=== PATIENT | female | born 1965 | race African-American/Black ===

== ENCOUNTER 2021-01-24 12:41 | Emergency (ER) | payer BC ==
[2021-01-24 14:24] LABS: Absolute Lymphocytes (CBC) 1.5 K/uL (0.7-4.9); Basophils % 0.4 % (0-1.3); Hematocrit 35.3 % (36.0-45.0); Lymphocytes % 33.1 % (15.3-44.8); MPV 9.6 fL (7.6-11.3); RBC Red Blood Cell Count 3.81 M/uL (3.86-4.86)
--- NOTE | 2021-01-24 14:40 | RAD REPORT ---
EXAM DESCRIPTION: RAD - Chest Single View - 01/24/2021 2:21 pm CLINICAL HISTORY: CHEST PAIN COMPARISON: None TECHNIQUE: AP portable chest image was obtained 01/24/2021 2:21 pm . FINDINGS: Lungs are clear. Heart and vasculature are normal. No measurable pleural effusion and no p neumothorax. No acute bony abnormality seen. No acute aortic findings suspected. IMPRESSION: No acute cardiopulmonary process.
[2021-01-24 14:42] LABS: Potassium 3.8 mmol/L (3.5-5.1); Sodium Level 143 mmol/L (136-145)
[2021-01-24 14:55] LABS: ALT/SGPT 22 U/L (12-78); AST/SGOT 14 U/L (15-37); Albumin 3.9 g/dL (3.4-5.0); Alkaline Phosphatase 68 U/L (45-117); BUN Blood Urea Nitrogen 9 mg/dL (7-18); Bicarbonate 31 mmol/L (21-32); Bilirubin Direct 0.2 mg/dL (0-0.2); Bilirubin Total 0.9 mg/dL (0.2-1.0); Glucose Level 81 mg/dL (74-106); Magnesium 1.9 mg/dL (1.8-2.4); NT PRO-BNP 61 pg/mL (<125); Protein, Total 7.7 g/dL (6.4-8.2); Troponin (Emerg Dept Use Only) < 0.02 ng/mL (0.0-0.045)
--- NOTE | 2021-01-24 15:27 | EDPHYS ---
Physician Documentation [facility] Name: Chely Franks Age: 55 yrs Sex: Female : 1965 Arrival Date: 01/24/2021 Time: 12:44 Bed 14 Private MD: Jody Santos ED Physician Kendall Coombs HPI: 01/24 14:45 This 55 yrs old Black Female presents to ER via Ambulatory with complaints of High ma2 Blood Pressure, Numbness Of Hand, Numbness Of Arm, Leg Swelling, Vision Problem. 14:45 The patient has elevated blood pressure and discovered this at home. Onset: The ma2 symptoms/episode began/occurred gradually, 1 week(s) ago. 14:46 Associated signs and symptoms: Pertinent negatives: dyspnea, lightheadedness, nausea, ma2 visual changes. Severity of symptoms: At its worst the blood pressure was mild, in the emergency department the blood pressure is unchanged. The patient has not experienced similar symptoms in the past. Patient has been having joint stiffness, aches mild swelling of both ankles and both wrists, and generalized weakness for a few weeks, she saw her PCP they did a blood work, referred to staff weapons officer, and she has an appointment scheduled with rheumatology for possible rheumatoid arthritis. However she checked her blood pressure yesterday at work and it was of 170/95, and she was advised to come to the ER for evaluation. Never had hypertension, does not have any symptom at this time. 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 However throughout the day when the swelling goes down the numbness also goes away. Patient does not have any symptom at this time no chest pain or angina equivalent, no left arm numbness or shoulder numbness.. Historical: - Allergies: 13:08 No Known Allergies; ld1 - Home Meds: 13:08 None [Active]; ld1 - PMHx: 13:08 None; ld1 - PSHx: 13:08 section; Cholecystectomy; hysterectomy; ld1 - Immunization history:: Adult Immunizations up to date, Client reports receiving the 2nd dose of the Covid vaccine. - Social history:: Smoking status: Patient denies any tobacco usage or history of. Patient/guardian denies using alcohol, The patient lives with family. - Family history:: not pertinent. ROS: 14:46 Constitutional: Negative for fever, chills, and weight loss. ma2 14:46 All other systems are negative. Exam: 14:46 Constitutional: This is a well developed, well nourished patient who is awake, alert, ma2 and in no acute distress. Head/Face: Normocephalic, atraumatic. Eyes: Pupils equal round and reactive to light, extra-ocular motions intact. Lids and lashes normal. Conjunctiva and sclera are non-icteric and not injected. Cornea within normal limits. Periorbital areas with no swelling, redness, or edema. ENT: Nares patent. No nasal discharge, no septal abnormalities noted. Tympanic membranes are normal and external auditory canals are clear. Oropharynx with no redness, swelling, or masses, exudates, or evidence of obstruction, uvula midline. Mucous membranes moist. Neck: Trachea midline, no thyromegaly or masses palpated, and no cervical lymphadenopathy. Supple, full range of motion without nuchal rigidity, or vertebral point tenderness. No Meningismus. Chest/axilla: Normal chest wall appearance and motion. Nontender with no deformity. No lesions are appreciated. Cardiovascular: Regular rate and rhythm with a normal S1 and S2. No gallops, murmurs, or rubs. Normal PMI, no JVD. No pulse deficits. Respiratory: Lungs have equal breath sounds bilaterally, clear to auscultation and percussion. No rales, rhonchi or wheezes noted. No increased work of breathing, no retractions or nasal flaring. Abdomen/GI: Soft, non-tender, with normal bowel sounds. No distension or tympany. No guarding or rebound. No evidence of tenderness throughout. Skin: Warm, dry with normal turgor. Normal color with no rashes, no lesions, and no evidence of cellulitis. MS/ Extremity: Pulses equal, no cyanosis. Neurovascular intact. Full, normal range of motion. Neuro: Awake and alert, GCS 15, oriented to person, place, time, and situation. Cranial nerves II-XII grossly intact. Motor strength 5/5 in all extremities. Sensory grossly intact. Cerebellar exam normal. Normal gait. Vital Signs: 13:03 BP 144 / 89; Pulse 64; Resp 18; Temp 97.9(TE); Pulse Ox 100% on R/A; Weight 99.79 kg; ld1 Height 5 ft. 11 in. (180.34 cm); Pain 0/10; 14:49 BP 135 / 84; Pulse 55; Resp 17; Pulse Ox 98% on R/A; jt3 15:34 BP 131 / 82; Pulse 73; Resp 17; Pulse Ox 100% on R/A; jt3 13:03 Body Mass Index 30.68 (99.79 kg, 180.34 cm) ld1 MDM: 13:18 Patient medically screened. ma2 14:46 Differential diagnosis: Essential hypertension, rheumatoid arthritis, SLE, versus ma2 secondary hypertension. 15:26 Data reviewed: vital signs, nurses notes. Counseling: I had a detailed discussion with ma2 the patient and/or guardian regarding: the historical points, exam findings, and any diagnostic results supporting the discharge/admit diagnosis, the presence of at least one elevated blood pressure reading (>120/80) during this emergency department visit, the need for outpatient follow up. Response to treatment: the patient's symptoms have markedly improved after treatment. ED course: T wave inversion in chest leads, V2, I informed the patient to have another EKG tomorrow and follow-up with PCP.. 01/24 13:19 Order name: Basic Metabolic Panel [facility] 01/24 13:19 Order name: CBC with Diff; Complete Time: 14:37 [facility] 01/24 13:19 Order name: LFT's; Complete Time: 15:21 [facility] 01/24 13:19 Order name: Magnesium; Complete Time: 15:21 [facility] 01/24 13:19 Order name: NT PRO-BNP; Complete Time: 15:21 [facility] 01/24 13:19 Order name: PT-INR; Complete Time: 14:37 [facility] 01/24 13:19 Order name: Troponin (emerg Dept Use Only); Complete Time: 15:21 [facility] 01/24 13:19 Order name: XRAY Chest (1 view); Complete Time: 15:21 [facility] 01/24 13:19 Order name: EKG; Complete Time: 13:20 [facility] 01/24 13:19 Order name: Cardiac monitoring; Complete Time: 14:02 [facility] 01/24 13:19 Order name: EKG - Nurse/Tech; Complete Time: 14:02 [facility] 01/24 13:19 Order name: IV Saline Lock; Complete Time: 14:02 ma2 01/24 13:19 Order name: Labs collected and sent; Complete Time: 14:02 k[facility] 01/24 13:19 Order name: Basic Metabolic Panel; Complete Time: 15:21 [facility] 01/24 13:19 Order name: O2 Per Protocol; Complete Time: 14:02 ma2 01/24 13:19 Order name: O2 Sat Monitoring; Complete Time: 14:02 ma2 Administered Medications: No medications were administered Disposition Summary: 01/24/21 15:27 Discharge Ordered Location: Home ma2 Condition: Stable ma2 Diagnosis - Elevated blood-pressure reading, without diagnosis of hypertension ma2 Followup: ma2 - With: Private Physician - When: Tomorrow - Reason: If symptoms return, Continuance of care Discharge Instructions: - Discharge Summary Sheet ma2 - DASH Eating Plan ma2 Forms: - Medication Reconciliation Form ma2 - Thank You Letter ma2 - Antibiotic Education ma2 - Prescription Opioid Use ma2 Signatures: Dispatcher [employer] EDMS Kendall Coombs MD MD ma2 Jody Sarabia RN RN ld1
--- NOTE | 2021-01-24 15:27 | ER ---
Nurse's Notes [facility] Name: Chely Franks Age: 55 yrs Sex: Female : 1965 Arrival Date: 01/24/2021 Time: 12:44 Bed 14 Private MD: Jody Santos Diagnosis: Elevated blood-pressure reading, without diagnosis of hypertension Presentation: 01/24 13:03 Chief complaint: Patient states: I noticed I couldn't feeling my left hand very well ld1 and it was feeling numb since Thursday, today I began seeing spots. So I wanted to come get checked out. I have been feeling very tired and drained. Coronavirus screen: At this time, the client does not indicate any symptoms associated with coronavirus-19. Ebola Screen: No symptoms or risks identified at this time. Initial Sepsis Screen: Does the patient meet any 2 criteria? No. Patient's initial sepsis screen is negative. Does the patient have a suspected source of infection? No. Patient's initial sepsis screen is negative. Risk Assessment: Do you want to hurt yourself or someone else? Patient reports no desire to harm self or others. Onset of symptoms was January 24, 2021. 13:03 Method Of Arrival: Ambulatory ld1 13:03 Acuity: ANGELA 3 ld1 Triage Assessment: 13:08 General: Appears in no apparent distress. comfortable, Behavior is calm, cooperative, ld1 appropriate for age. Pain: Denies pain. EENT: Reports Seeing spots. Neuro: Level of Consciousness is awake, alert, obeys commands, Oriented to person, place, time, situation, Appropriate for age. Cardiovascular: Capillary refill < 3 seconds Patient's skin is warm and dry. Respiratory: Airway is patent Respiratory effort is even, unlabored, Respiratory pattern is regular, symmetrical. GI: Abdomen is round non-distended. : No signs and/or symptoms were reported regarding the genitourinary system. Derm: No signs and/or symptoms reported regarding the dermatologic system. Musculoskeletal: No signs and/or symptoms reported regarding the musculoskeletal system. Historical: - Allergies: 13:08 No Known Allergies; ld1 - Home Meds: 13:08 None [Active]; ld1 - PMHx: 13:08 None; ld1 - PSHx: 13:08 section; Cholecystectomy; hysterectomy; ld1 - Immunization history:: Adult Immunizations up to date, Client reports receiving the 2nd dose of the Covid vaccine. - Social history:: Smoking status: Patient denies any tobacco usage or history of. Patient/guardian denies using alcohol, The patient lives with family. - Family history:: not pertinent. Screenin:02 Abuse screen: Denies threats or abuse. Denies injuries from another. Nutritional jt3 screening: No deficits noted. Tuberculosis screening: No symptoms or risk factors identified. Fall Risk None identified. Assessment: 14:02 General: Appears in no apparent distress. Behavior is calm, cooperative. Pain: Denies jt3 pain. Neuro: No deficits noted. Cardiovascular: Rhythm is irregular. Respiratory: No deficits noted. 14:49 Reassessment: No changes from previously documented assessment. Patient and/or family jt3 updated on plan of care and expected duration. Pain level reassessed. Vital Signs: 13:03 BP 144 / 89; Pulse 64; Resp 18; Temp 97.9(TE); Pulse Ox 100% on R/A; Weight 99.79 kg; ld1 Height 5 ft. 11 in. (180.34 cm); Pain 0/10; 14:49 BP 135 / 84; Pulse 55; Resp 17; Pulse Ox 98% on R/A; jt3 15:34 BP 131 / 82; Pulse 73; Resp 17; Pulse Ox 100% on R/A; jt3 13:03 Body Mass Index 30.68 (99.79 kg, 180.34 cm) ld1 ED Course: 12:44 Patient arrived in ED. mr 12:45 Jody Santos is Private Physician. mr 13:07 Triage completed. ld1 13:08 Arm band placed on left wrist. ld1 13:16 Sathya Black RN is Primary Nurse. jt3 13:18 Kendall Coombs MD is Attending Physician. ma2 14:02 Patient has correct armband on for positive identification. Bed in low position. Call jt3 light in reach. Side rails up X2. 14:02 No provider procedures requiring assistance completed. Inserted saline lock: 20 gauge jt3 in right antecubital area, using aseptic technique. Blood collected. 14:21 XRAY Chest (1 view) In Process Unspecified. EDMS 15:44 IV discontinued, intact, bleeding controlled, No redness/swelling at site. Pressure jt3 dressing applied. Administered Medications: No medications were administered Outcome: 15:27 Discharge ordered by . cornelio 15:43 Discharged to home ambulatory. jt3 15:43 Condition: good 15:43 Discharge instructions given to patient, Instructed on discharge instructions, follow up and referral plans. 15:57 Patient left the ED. jt3 Signatures: Dispatcher [employer] MIHAELADebi Zhu AbbykeshawnKendall MD MD ma2 Jody Sarabia RN RN ld1 Sathya Black RN RN jt3 Corrections: (The following items were deleted from the chart) 13:08 13:03 Chief complaint: Patient states: I noticed I couldn't feeling my left hand very ld1 well and it was feeling numb since Thursday. So I wanted to come get checked out. I have been feeling very tired and drained. ld1
[2021-01-24 16:34] VITALS: TEMP 97.9
[2021-01-24 16:38] VITALS: BP 131/82; O2SAT 100
--- NOTE | 2021-01-25 20:38 | EKG ---
Test Date: 2021-01-24 Test Time: 13:53:04 [employer]umen Plant Operator: AKHIL MEASUREMENT RESULTS: Intervals: Rate: 57 IN: 186 QRSD: 94 QT: 422 QTc: 410 [place]: P: 53 IN: 186 QRS: 6 T: 131 INTERPRETIVE STATEMENTS: Sinus bradycardia T wave abnormality, consider lateral ischemia Abnormal ECG No previous ECG available for comparison Electronically Signed On 01-25-21 20:35:15 WIG COMBER by Orlando Cobb
== END 2021-01-24 15:57 | disposition home or self-care (01) ==
LOC: ER 12:41
DX: R03.0 Elevated blood-pressure reading, without diagnosis of hypertension (principal)
CPT/HCPCS: 36415; 71045; 80048; 80076; 83735; 83880; 84484; 85025; 85610; 93005; 99283

== ENCOUNTER 2022-10-23 01:51 | Emergency (ER) | payer BC, OTHER ==
[2022-10-23] MEDS ORDERED: MORPHINE 4 MG/ML SYR ONE (02:40)
[2022-10-23] MEDS ORDERED: dexAMETHasone 10 MG/ML VIAL ONE (02:40)
[2022-10-23] MEDS ORDERED: KETOROLAC 30 MG/ML INJ ONE (02:41)
[2022-10-23] MEDS ORDERED: ONDANSETRON 4 MG/2 ML VIAL ONE (02:41)
[2022-10-23] MEDS ORDERED: NA CHLORIDE 0.9% 1,000 ML ONE (02:41)
[2022-10-23 02:58] LABS: Absolute Lymphocytes (CBC) 1.5 K/uL (0.7-4.9); Hematocrit 34.8 % (36.0-45.0); Lymphocytes % 20.2 % (15.3-44.8); MCV 92.5 fL (80-100); MPV 10.6 fL (7.6-11.3); Platelets 204 thou/uL (152-406); RBC Red Blood Cell Count 3.76 M/uL (3.86-4.86)
[2022-10-23 02:59] LABS: Protime INR 1.15
[2022-10-23 03:08] LABS: Specific Gravity > 1.030 (1.005-1.030); Urine Bacteria <20 /HPF (<20); Urine Bilirubin NEGATIVE (Negative); Urine Blood 1+ (Negative); Urine Clarity Clear (Clear); Urine Color Light-Yellow (Yellow); Urine Glucose NEGATIVE (Negative); Urine Mucus Slight /HPF (None Seen); Urine Protein TRACE (Negative); Urine RBC <5 /HPF (None Seen); Urine Urobilinogen Normal (Normal)
[2022-10-23 03:12] LABS: Bilirubin Direct 0.3 mg/dL (0-0.2); Bilirubin Total 1.3 mg/dL (0.2-1.0); Potassium 3.6 mEq/L (3.5-5.1); Protein, Total 8.1 g/dL (6.4-8.2); Troponin High Sensitivity 4.7 pg/mL (<58.9)
--- NOTE | 2022-10-23 03:34 | EDPHYS ---
Physician Documentation [facility] Name: Chely Franks Age: 57 yrs Sex: Female : 1965 Arrival Date: 10/23/2022 Time: 01:51 Bed 20 Private MD: MIHAELA Physician Robert Ugarte HPI: 10/23 02:40 This 57 yrs old Black Female presents to ER via Ambulatory with complaints of Arm Pain. elvi 02:40 The patient or guardian complains of decreased range of motion. The complaints affect elvi the right bicep, right antecubital area, dorsal aspect of right forearm, right tricep, right elbow and palmar aspect of right forearm. Context: The problem was sustained at an unknown location, resulted from unknown cause. Onset: The symptoms/episode began/occurred 3 day(s) ago. Treatment prior to arrival includes: no previous treatment. Modifying factors: The symptoms are alleviated by remaining still, the symptoms are aggravated by movement, lifting weight, bending arm. Associated signs and symptoms: Pertinent positives: pain. The patient has experienced similar episodes in the past, chronically. Historical: - Allergies: 02:05 No Known Allergies; cm10 - Home Meds: 02:05 None [Active]; cm10 - PMHx: 02:05 None; cm10 - PSHx: 02:05 section; Cholecystectomy; hysterectomy; Oral surgery; cm10 - Immunization history:: Adult Immunizations unknown. - Social history:: Smoking status: Patient denies any tobacco usage or history of. ROS: 02:40 Constitutional: Negative for fever, chills, and weight loss, Eyes: Negative for injury, elvi pain, redness, and discharge, ENT: Negative for injury, pain, and discharge, Neck: Negative for injury, pain, and swelling, Cardiovascular: Negative for chest pain, palpitations, and edema, Respiratory: Negative for shortness of breath, cough, wheezing, and pleuritic chest pain, Abdomen/GI: Negative for abdominal pain, nausea, vomiting, diarrhea, and constipation, Back: Negative for injury and pain, : Negative for injury, bleeding, discharge, and swelling, Skin: Negative for injury, rash, and discoloration, Neuro: Negative for headache, weakness, numbness, tingling, and seizure, Psych: Negative for depression, anxiety, suicide ideation, homicidal ideation, and hallucinations, Allergy/Immunology: Negative for hives, rash, and allergies, Endocrine: Negative for neck swelling, polydipsia, polyuria, polyphagia, and marked weight changes, Hematologic/Lymphatic: Negative for swollen nodes, abnormal bleeding, and unusual bruising. 02:40 MS/extremity: Positive for decreased range of motion, pain, swelling, tenderness, of the right arm. Exam: 02:40 Constitutional: This is a well developed, well nourished patient who is awake, alert, elvi and in no acute distress. Head/Face: Normocephalic, atraumatic. Eyes: Pupils equal round and reactive to light, extra-ocular motions intact. Lids and lashes normal. Conjunctiva and sclera are non-icteric and not injected. Cornea within normal limits. Periorbital areas with no swelling, redness, or edema. ENT: Nares patent. No nasal discharge, no septal abnormalities noted. Tympanic membranes are normal and external auditory canals are clear. Oropharynx with no redness, swelling, or masses, exudates, or evidence of obstruction, uvula midline. Mucous membranes moist. Neck: Trachea midline, no thyromegaly or masses palpated, and no cervical lymphadenopathy. Supple, full range of motion without nuchal rigidity, or vertebral point tenderness. No Meningismus. Chest/axilla: Normal chest wall appearance and motion. Nontender with no deformity. No lesions are appreciated. Cardiovascular: Regular rate and rhythm with a normal S1 and S2. No gallops, murmurs, or rubs. Normal PMI, no JVD. No pulse deficits. Respiratory: Lungs have equal breath sounds bilaterally, clear to auscultation and percussion. No rales, rhonchi or wheezes noted. No increased work of breathing, no retractions or nasal flaring. Abdomen/GI: Soft, non-tender, with normal bowel sounds. No distension or tympany. No guarding or rebound. No evidence of tenderness throughout. Back: No spinal tenderness. No costovertebral tenderness. Full range of motion. Female : Normal external genitalia. Skin: Warm, dry with normal turgor. Normal color with no rashes, no lesions, and no evidence of cellulitis. MS/ Extremity: Pulses equal, no cyanosis. Neurovascular intact. Full, normal range of motion. Neuro: Awake and alert, GCS 15, oriented to person, place, time, and situation. Cranial nerves II-XII grossly intact. Motor strength 5/5 in all extremities. Sensory grossly intact. Cerebellar exam normal. Normal gait. Psych: Awake, alert, with orientation to person, place and time. Behavior, mood, and affect are within normal limits. 03:32 ECG was reviewed by the Attending Physician. [facility] Vital Signs: 02:03 BP 134 / 80; Pulse 78; Resp 18; Temp 99.2(O); Pulse Ox 97% ; Weight 107.95 kg; Height 5 cm10 ft. 10 in. ; Pain 10; 04:05 BP 142 / 93; Pulse 61; Resp 16; Pulse Ox 99% on R/A; ll3 02:03 Body Mass Index 34.15 (107.95 kg, 177.8 cm) cm10 02:03 Pain Scale: Adult cm10 MDM: 01:57 Patient medically screened. [facility] 02:42 Differential diagnosis: contusion, abrasion, tendonitis. Data reviewed: vital signs, [facility] nurses notes, lab test result(s), EKG, radiologic studies, CT scan, plain films. Consideration of Admission/Observation Escalation of care including admission/observation considered. I considered the following discharge prescriptions or medication management in the emergency department Medications were administered in the Emergency Department. See MAR. Independent interpretation of the following test(s) in the Emergency Department EKG: See my EKG interpretation above. Test considered but Not performed: MRI: no mri right shoulder. Care significantly affected by the following chronic conditions: Obesity. 10/23 01:58 Order name: Basic Metabolic Panel; Complete Time: 03:33 [facility] 10/23 01:58 Order name: CBC with Diff; Complete Time: 03:33 [facility] 10/23 01:58 Order name: LFT's; Complete Time: 03:33 [facility] 10/23 01:58 Order name: Magnesium; Complete Time: 03:33 [facility] 10/23 01:58 Order name: NT PRO-BNP; Complete Time: 03:33 [facility] 10/23 01:58 Order name: PT-INR; Complete Time: 03:33 [facility] 10/23 01:58 Order name: Troponin HS; Complete Time: 03:33 [facility] 10/23 01:58 Order name: Urinalysis w/ reflexes; Complete Time: 03:33 [facility] 10/23 01:58 Order name: XRAY Chest (1 view) [facility] 10/23 02:13 Order name: CT C Spine [facility] 10/23 02:40 Order name: Humerus Right XRAY [facility] 10/23 03:47 Order name: UPPER EXTREMITY VENOUS UNILATE [facility] 10/23 01:58 Order name: EKG; Complete Time: 01:59 [facility] 10/23 01:58 Order name: Cardiac monitoring; Complete Time: 03:28 [facility] 10/23 01:58 Order name: EKG - Nurse/Tech; Complete Time: 03:28 [facility] 10/23 01:58 Order name: IV Saline Lock; Complete Time: 02:27 [facility] 10/23 01:58 Order name: Labs collected and sent; Complete Time: 02:27 [facility] 10/23 01:58 Order name: O2 Per Protocol; Complete Time: 02:27 [facility] 10/23 01:58 Order name: O2 Sat Monitoring; Complete Time: 02:27 [facility] 10/23 02:47 Order name: Sling; Complete Time: 04:02 [facility] EC:32 Rate is 61 beats/min. Rhythm is regular. QRS [place] is Normal. TN interval is normal. QRS elvi interval is normal. QT interval is normal. No Q waves. T waves are Normal. Clinical impression: NSR w/ Non-specific ST/T Changes and No evidence of ischemia. Interpreted by me. Reviewed by me. Administered Medications: 02:38 Drug: Ondansetron IVP 4 mg Route: IVP; Site: left antecubital; ll3 04:02 Follow up: Response: No adverse reaction ll3 02:38 Drug: morphine IVP or IV 4 mg Route: IVP; Infused Over: 4 mins; Site: left antecubital; ll3 04:02 Follow up: Response: No adverse reaction; Marked relief of symptoms ll3 02:39 Drug: NS 0.9% IV 1000 ml Route: IV; Rate: 1 bolus; Site: left antecubital; ll3 04:02 Follow up: Response: No adverse reaction; IV Status: Completed infusion; IV Intake: ll3 1000ml 02:39 Drug: Decadron - Dexamethasone IVP 10 mg Route: IVP; Site: left antecubital; ll3 04:02 Follow up: Response: No adverse reaction; Marked relief of symptoms ll3 02:39 Drug: Ketorolac IVP 30 mg Route: IVP; Site: left antecubital; ll3 04:02 Follow up: Response: No adverse reaction; Marked relief of symptoms ll3 03:48 Not Given (Patient Refused): Diazepam PO 10 mg PO once ll3 Disposition Summary: 10/23/22 03:34 Discharge Ordered Location: Home [facility] Problem: new elvi Symptoms: have improved elvi Condition: Stable eliv Diagnosis - Pain in right upper arm elvi - Unspecified symptoms and signs involving the musculoskeletal system elvi - Cervical disc disorder with radiculopathy, unspecified cervical region elvi Followup: elvi - With: Private Physician - When: 2 - 3 days - Reason: Recheck today's complaints, Continuance of care, Re-evaluation by your physician Followup: elvi - With: - When: 2 - 3 days - Reason: Recheck today's complaints, Re-evaluation by your physician Discharge Instructions: - Discharge Summary Sheet elvi - Cervical Radiculopathy elvi - Musculoskeletal Pain elvi - Pain Without a Known Cause elvi - Herniated Disk, [id number] elvi - Cervical Radiculopathy, [id number] [facility] Forms: - Medication Reconciliation Form [facility] - Thank You Letter [facility] - Antibiotic Education elvi - Prescription Opioid Use elvi - Patient Portal Instructions [facility] Prescriptions: - acetaminophen-codeine 300-30 mg Oral tablet - take 2 tablet by ORAL route every 6 hours; 20 tablet; Refills: 0, Product [facility] Selection Permitted - dexamethasone 2 mg Oral tablet - take 1 tablet by ORAL route 2 times per day; 10 tablet; Refills: 0, Product elvi Selection Permitted - Valium 5 mg Oral Tablet - take 1 tablet by ORAL route every 8 hours As needed; 20 tablet; Refills: 0, [facility] Product Selection Permitted - Diclofenac Sodium 75 mg Oral Tablet Sustained Release - take 1 tablet by ORAL route 2 times per day; 30 tablet; Refills: 0, Product [facility] Selection Permitted Signatures: Dispatcher [employer] EDRobert Evangelista MD MD cha Loubet, Lynsea RN RN ll3 Bhavani Park RN RN cm10 Corrections: (The following items were deleted from the chart) 03:46 02:40 Extremity Venous [email or web address] ordered. EDNJ EDMS
--- NOTE | 2022-10-23 03:34 | ER ---
Nurse's Notes [facility] Name: Chely Franks Age: 57 yrs Sex: Female : 1965 Arrival Date: 10/23/2022 Time: 01:51 Bed 20 Private MD: Diagnosis: Pain in right upper arm;Unspecified symptoms and signs involving the musculoskeletal system;Cervical disc disorder with radiculopathy, unspecified cervical region Presentation: 10/23 02:03 Chief complaint: Patient states: chronic right arm X2 years that got worse 2 weeks ago. cm10 Pt denies any trauma or injury. Pt states that the pain is to her upper arm. Coronavirus screen: Vaccine status: Patient reports receiving the 2nd dose of the covid vaccine. Client denies travel out of the [place] in the last 14 days. Ebola Screen: Patient denies travel to an Ebola-affected area in the 21 days before illness onset. No symptoms or risks identified at this time. Initial Sepsis Screen: Does the patient meet any 2 criteria? No. Patient's initial sepsis screen is negative. Does the patient have a suspected source of infection? No. Patient's initial sepsis screen is negative. Risk Assessment: Do you want to hurt yourself or someone else? Patient reports no desire to harm self or others. Onset of symptoms was October 23, 2022. 02:03 Method Of Arrival: Ambulatory 10 02:03 Acuity: ANGELA 4 cm10 Historical: - Allergies: 02:05 No Known Allergies; cm10 - Home Meds: 02:05 None [Active]; cm10 - PMHx: 02:05 None; cm10 - PSHx: 02:05 section; Cholecystectomy; hysterectomy; Oral surgery; cm10 - Immunization history:: Adult Immunizations unknown. - Social history:: Smoking status: Patient denies any tobacco usage or history of. Screenin:03 [facility] ED Fall Risk Assessment (Adult) History of falling in the last 3 months, ll3 including since admission No falls in past 3 months (0 pts) Confusion or Disorientation No (0 pts) Intoxicated or Sedated No (0 pts) Impaired Gait No (0 pts) Mobility Assist Device Used No (0 pt) Altered Elimination No (0 pt) Score/Fall Risk Level 0 - 2 = Low Risk Oriented to surroundings, Maintained a safe environment, Educated pt \T\ family on fall prevention, incl call for assistance when getting out of bed. Abuse screen: Denies threats or abuse. Denies injuries from another. Nutritional screening: No deficits noted. Tuberculosis screening: No symptoms or risk factors identified. Assessment: 04:03 General: Appears uncomfortable, Behavior is calm, cooperative. Pain: Complains of pain ll3 in right elbow Pain does not radiate. Pain currently is 10 out of 10 on a pain scale. Pain began 2020 Is continuous. Derm: Skin is pink, warm \T\ dry. Musculoskeletal: Circulation, motion, and sensation intact. Vital Signs: 02:03 BP 134 / 80; Pulse 78; Resp 18; Temp 99.2(O); Pulse Ox 97% ; Weight 107.95 kg; Height 5 cm10 ft. 10 in. ; Pain 10/10; 04:05 BP 142 / 93; Pulse 61; Resp 16; Pulse Ox 99% on R/A; ll3 02:03 Body Mass Index 34.15 (107.95 kg, 177.8 cm) cm10 02:03 Pain Scale: Adult cm10 ED Course: 01:56 Patient arrived in ED. ag3 01:57 Robert Ugarte MD is Attending Physician. elvi 02:05 Triage completed. cm10 02:06 Arm band placed on Patient placed in waiting room. cm10 02:20 XRAY Chest (1 view) In Process Unspecified. EDMS 02:27 Initial lab(s) drawn, by nm, sent to lab. Inserted saline lock: 20 gauge in left ll3 antecubital area, using aseptic technique. Blood collected. 02:56 CT C Spine In Process Unspecified. EDMS 03:11 Humerus Right XRAY In Process Unspecified. EDMS 03:34 Gus Reynolds MD is Referral Physician. elvi 03:47 UPPER EXTREMITY VENOUS UNILATE In Process Unspecified. EDMS 04:04 Patient has correct armband on for positive identification. Bed in low position. Call ll3 light in reach. Side rails up X 1. 04:04 No provider procedures requiring assistance completed. IV discontinued, intact, ll3 bleeding controlled, No redness/swelling at site. Pressure dressing applied. Administered Medications: 02:38 Drug: Ondansetron IVP 4 mg Route: IVP; Site: left antecubital; ll3 04:02 Follow up: Response: No adverse reaction ll3 02:38 Drug: morphine IVP or IV 4 mg Route: IVP; Infused Over: 4 mins; Site: left antecubital; ll3 04:02 Follow up: Response: No adverse reaction; Marked relief of symptoms ll3 02:39 Drug: NS 0.9% IV 1000 ml Route: IV; Rate: 1 bolus; Site: left antecubital; ll3 04:02 Follow up: Response: No adverse reaction; IV Status: Completed infusion; IV Intake: ll3 1000ml 02:39 Drug: Decadron - Dexamethasone IVP 10 mg Route: IVP; Site: left antecubital; ll3 04:02 Follow up: Response: No adverse reaction; Marked relief of symptoms ll3 02:39 Drug: Ketorolac IVP 30 mg Route: IVP; Site: left antecubital; ll3 04:02 Follow up: Response: No adverse reaction; Marked relief of symptoms ll3 03:48 Not Given (Patient Refused): Diazepam PO 10 mg PO once ll3 Medication: 04:04 VIS not applicable for this client. ll3 Intake: 04:02 IV: 1000ml; Total: 1000ml. ll3 Outcome: 03:34 Discharge ordered by . elvi 04:04 Discharged to home ambulatory, with family. ll3 04:04 Condition: stable 04:04 Discharge instructions given to patient, Instructed on discharge instructions, follow up and referral plans. medication usage, Demonstrated understanding of instructions, follow-up care, medications, Prescriptions given X 4. 04:06 Patient left the ED. ll3 04:13 Patient left the ED. rv1 Signatures: Dispatcher [employer] EDRobert Evangelista MD MD cha Gomez, Alice ag3 Loubet, Lynsea, RN RN ll3 Guillermina Whitley rv1 Bhavani Park, RN RN cm10
[2022-10-23 04:46] VITALS: TEMP 99.2
[2022-10-23 04:55] VITALS: BP 142/93; O2SAT 99
--- NOTE | 2022-10-23 14:11 | EKG ---
Test Date: 2022-10-23 Test Time: 03:09:40 Nutrition Partner: BRYN MEASUREMENT RESULTS: Intervals: Rate: 61 GA: 186 QRSD: 108 QT: 430 QTc: 432 [place]: P: 37 GA: 186 QRS: 8 T: 60 INTERPRETIVE STATEMENTS: Normal sinus rhythm Nonspecific T wave abnormality Abnormal ECG Compared to ECG 01/24/2021 13:53:04 Sinus bradycardia no longer present Possible ischemia no longer present T-wave abnormality still present Electronically Signed On 10-23-22 14:10:17 CDT by Braeden Vega
--- NOTE | 2022-10-23 19:03 | RAD REPORT ---
EXAM DESCRIPTION: XR Chest, 1 View CLINICAL HISTORY: The patient is 57 years old and is Female; arm pain TECHNIQUE: Frontal view of the chest. COMPARISON: No relevant prior studies available. FINDINGS: Lungs: Prominent interstitial and vascular markings. No consolidation. Pleural space: Unremarkable. No pneumothorax. Heart: Unremarkable. Mediastinum: Unremarkable. Bones/joints: Unremarkable. IMPRESSION: No acute findings in the chest. Electronically signed by: Tip Stevens MD 10/23/2022 2:28 AM CDT Due to temporary technical issues with the PACS/Fluency reporting system, reports are being signed by the in house radiologists without review as a courtesy to insure prompt reporting. The interpreting radiologist is fully responsible for the content of the report.
--- NOTE | 2022-10-23 19:06 | RAD REPORT ---
EXAM DESCRIPTION: CT cervical spine without intravenous contrast CLINICAL HISTORY: 57 years Female Pain; radiculopathy TECHNIQUE: Multiple high-resolution thin axial CT images were performed through the cervical spine f ollowed by sagittal and coronal reconstructed images. The CT study is performed according to ALARA (a s low as reasonably achievable) or ALARA/IMAGE GENTLY, with automatic adjustment of mA and/or kV acco rding to patient size. Performed on: 10/23/2022 at 2:30 AM COMPARISON: No prior studies were available for comparison. FINDINGS: The cervical vertebrae are normal in height. There is straightening and slight reversal of the normal cervical lordosis which may be related to patient positioning or possibly muscle spasm Th ere is mild disc space narrowing at C5-C6 and C6-C7. There is mild degenerative spurring of the verte bral endplates at C6-C7. There is Bone mineralization is normal. The atlanto-axial articulation is preserved and the odontoid process is intact. There is normal alignment of the facet joints on the parasagittal images. There are no significant de generative changes of the facet joints. There is no evidence of acute fracture or subluxation. There is no significant canal stenosis. Ther e is no significant neural foraminal stenosis. The prevertebral and paraspinal soft tissues are unremarkable. The lung apices grossly clear IMPRESSION: 1. No evidence of acute osseous injury involving the cervical spine. 2. Straightening and slight reversal of the normal cervical lordosis which may be related to patien t positioning or possibly muscle spasm. 3. Mild disc space narrowing at C5-C6 and C6-C7 with mild degenerative spurring of the vertebral en dplates at C6-C7. Electronically signed by: Rosa M Saleh DO 10/23/2022 3:22 AM CDT Due to temporary technical issues with the PACS/Fluency reporting system, reports are being signed by the in house radiologists without review as a courtesy to insure prompt reporting. The interpreting radiologist is fully responsible for the content of the report.
--- NOTE | 2022-10-23 19:09 | RAD REPORT ---
EXAM DESCRIPTION: XR Right Humerus, 2 Views CLINICAL HISTORY: PAIN TECHNIQUE: Frontal and lateral views of the right humerus. COMPARISON: No relevant prior studies available. FINDINGS: Bones/joints: Unremarkable. No acute fracture. No dislocation. Soft tissues: Unremarkable. IMPRESSION: No acute injury. Electronically signed by: Chula Scott MD 10/23/2022 3:44 AM CDT Due to temporary technical issues with the PACS/Fluency reporting system, reports are being signed by the in house radiologists without review as a courtesy to insure prompt reporting. The interpreting radiologist is fully responsible for the content of the report.
--- NOTE | 2022-10-23 19:23 | RAD REPORT ---
EXAM DESCRIPTION: Ultrasound veins right upper extremity CLINICAL HISTORY: 57 years Female PAIN UPPER EXTREMITY VENOUS UNILATE TECHNIQUE: Grayscale and color Doppler images of the deep veins of the right upper extremity were pe rformed on 10/23/2022 at 3: 21 AM. COMPARISON: None. FINDINGS: Grayscale and color Doppler images of the deep veins of the right upper extremity was perf ormed from the level of the right jugular vein to the radial and ulnar veins. The grayscale images re veal normal compressibility of the deep veins. The Doppler images reveal normal flow and normal [place] with respiration. The color flow images reveal normal saturation of flow within the deep veins o f the right upper extremity. No intraluminal echoes are identified to suggest nonocclusive thrombus. The superficial veins are patent. No additional abnormalities are identified. IMPRESSION: No evidence of deep venous thrombosis in the right upper extremity. Electronically signed by: Rosa M Saleh DO 10/23/2022 4:13 AM CDT Due to temporary technical issues with the PACS/Fluency reporting system, reports are being signed by the in house radiologists without review as a courtesy to insure prompt reporting. The interpreting radiologist is fully responsible for the content of the report.
== END 2022-10-23 04:13 | disposition home or self-care (01) ==
LOC: ER 01:51
DX: R29.91 Unspecified symptoms and signs involving the musculoskeletal system (principal); M50.10 Cervical disc disorder with radiculopathy, unspecified cervical region
CPT/HCPCS: 96361; 93005; 85025; 81001; 80048; 36415; 83735; 85610; 80076; 84484; 83880; 72125; 71045; 73060; 93971; 96375; 96374; 99284; J1100; J2405; J7030